=== PATIENT | male | born 1960 | race Caucasian/White ===

== ENCOUNTER 2020-03-27 15:32 | Emergency (ER) | payer OTHER, SELFPAY ==
--- NOTE | ~2020-03-27 | XR_ITS ---
EXAMINATION: XR abdomen/kub 1V INDICATION: Right flank pain TECHNIQUE: Supine views of the abdomen were obtained on 2 radiographs. COMPARISON: None FINDINGS: No urinary tract calculi are identified. Cholecystectomy clips are present in the right upp er quadrant. The bowel gas pattern is normal. There are changes of bilateral hip arthroplasty. IMPRESSION: 1. No radiographic correlate for the patient's symptoms. Reviewed, dictated and finalized at location A.
--- NOTE | ~2020-03-27 | CT_ITS ---
EXAMINATION: CT abdomen pelvis wo con DATE: 03/27/2020 16:17 INDICATION: Right flank pain TECHNIQUE: Computed tomography (CT) of the abdomen and pelvis was performed without intravenous contr ast. The dose-length product (DLP) was 1369.90 mGy-cm. Automated exposure control and iterative recon struction technique were employed. COMPARISON: 07/19/2018 FINDINGS: Minimal dependent atelectasis is present in the lung bases. The heart size is normal. The l iver is diffusely low in attenuation when compared with the spleen, consistent with hepatic steatosis . The gallbladder is surgically absent. The liver, spleen, pancreas, and adrenal glands are normal. T he kidneys are unremarkable. No stones are identified in the kidneys, ureters, or bladder. There is n o hydronephrosis or hydroureter. No pathologically enlarged abdominal or pelvic lymph nodes are ident ified. There is no free intraperitoneal gas or evidence of bowel obstruction. The appendix is normal. There is a fat-containing periumbilical hernia. There is chronic grade 1 anterolisthesis of L5 on S 1 with bilateral L5 pars defects. Changes of bilateral total hip arthroplasties are noted. IMPRESSION: 1. No CT correlate for the patient's symptoms. No urinary tract calculi, hydronephrosis, or hydrouret er. Reviewed, dictated and finalized at location [facility]. IMPRESSION: 1. No CT correlate for the patient's symptoms. No urinary tract calculi, hydron ephrosis, or hydroureter.
[2020-03-27 15:44] VITALS: BP 223/80; PULSE 94; RESP 18; TEMP 36.7; O2SAT 95
--- NOTE | 2020-03-27 15:47 | ED.ABDPAIN ---
HPI - Abdominal Pain General Chief Complaint: Abdominal Pain <Ray Talley PA-C - Last Filed: 03/27/20 17:24> Stated Complaint: flank <KISHA Perez Last Filed: 03/27/20 17:24> Time Seen by Provider: 03/27/20 15:37 <KISHA Perez Last Filed: 03/27/20 17:24> Source: patient <KISHA Perez Last Filed: 03/27/20 17:24> Mode of arrival: ambulatory <Ray Talley PA-C - Last Filed: 03/27/20 17:24> Limitations: no limitations <KISHA Perez Last Filed: 03/27/20 17:24> History of Present Illness HPI narrative: Patient is a 60-year-old male who presents to emergency department for evaluation of right flank pain that began over the last several days was more mild in nature and moreau increased in severity since onset patient denies similar occurrence in the past has not taken anything for his symptoms presents per private vehicle in no distresss <Ray Talley PA-C - Last Filed: 03/27/20 17:24> Related Data Home Medications: Home Medications Medication Instructions Recorded Confirmed alprazolam 1 mg tablet 1 mg PO TID PRN 12/15/19 03/09/20 paroxetine HCl 40 mg tablet 40 mg PO DAILY 12/15/19 03/09/20 <KISHA Perez Last Filed: 03/27/20 17:24> Allergies/Adverse Reactions: Allergies Allergy/AdvReac Type Severity Reaction Status Date / Time No Known Allergies Allergy Unknown Verified 03/27/20 15:47 <Ray Talley PA-C - Last Filed: 03/27/20 17:24> Review of Systems Review of Systems: All systems reviewed & are unremarkable except as noted in HPI and below <Ray Talley PA-C - Last Filed: 03/27/20 17:24> PMFSH Past Medical History Medical History: Medical History (Updated 03/27/20 @ 17:23 by Ray Talley PA-C) Anxiety Morbid (severe) obesity due to excess calories Type 2 diabetes mellitus without complication, without long-term current use of insulin <KISHA Perez Last Filed: 03/27/20 17:24> Surgical History Surgical History: Surgical History History of orthopedic surgery Hx of cholecystectomy <Ray Talley PA-C - Last Filed: 03/27/20 17:24> Family History Family History: Family History Father Patient's father is in good health Other Family history of malignant neoplasm <Ray Talley PA-C - Last Filed: 03/27/20 17:24> Social History Social History: Social History Smoking status: Current every day smoker Alcohol intake: never Gender identity (if verbalized by the patient): Female <Ray Talley PA-C - Last Filed: 03/27/20 17:24> Exam Narrative: Exam Narrative: GENERAL: Well-appearing, morbidly obese, and in no acute distress. HEAD: Normocephalic, atraumatic. EYES: PERRLA and EOMI. ENT: Nares clear, no rhinorrhea or epistaxis. Mucous membranes moist. CHEST: Clear to auscultation. No respiratory distress. No wheezes rales or rhonchi HEART: Regular rate and rhythm. No murmur heard. Normal peripheral pulses. ABDOMEN: Soft, nontender, distended EXTREMITIES: Normal range of motion. No edema. SKIN: Warm, dry, no rash. NEURO: No focal deficits. Alert and oriented x3. PSYCH: Normal mood and affect. <Ray Talley PA-C - Last Filed: 03/27/20 17:24> Course Vital Signs Vital signs: Vital Signs Temperature 36.7 C 03/27/20 15:44 Pulse Rate 94 03/27/20 15:44 Respiratory Rate 18 03/27/20 15:44 Blood Pressure 223/80 H 03/27/20 15:44 Pulse Oximetry 95 03/27/20 15:44 Temperature 36.7 C 03/27/20 15:44 Pulse Rate 84 03/27/20 17:36 Respiratory Rate 18 03/27/20 17:36 Blood Pressure 167/66 H 03/27/20 17:36 Pulse Oximetry 95 03/27/20 17:36 <Ray Talley PA-C - Last Filed: 03/27/20 17:24> Vital Signs
[2020-03-27] MEDS: FAMOTIDINE 20 MG/2 ML VIAL IV PUSH (16:30)
[2020-03-27] MEDS: SODIUM CHLORIDE 0.9% IV 1,000 ML 999 ML IV CONT ×2 (16:31)
[2020-03-27 16:39] LABS: Basophils Percent Auto 0.4 % (0.2-1.2); Eosinophils Absolute Auto 0.3 K/mm3 (0-0.3); Eosinophils Percent Auto 2.3 % (0-4.4); Hematocrit 49.3 % (42.0-52.0); Hemoglobin 16.3 g/dL (14.0-18.0); Immature Granulocyte Absolute 0.07 K/mm3 (0.00-0.031); Immature Granulocyte Percent A 0.6 % (0-0.5); Lymphocytes Absolute Auto 1.38 K/mm3 (0.9-3.2); Lymphocytes Percent Auto 12.6 % (18.3-44.2); Mean Corpuscular HGB Conc 33.1 g/dl (32-36); Mean Corpuscular Hemoglobin 30.2 pg (26-34); Mean Corpuscular Volume 91.5 fl (80-100); Mean Platelet Volume 9.7 fl (7.4-10.4); Monocytes Percent Auto 8.7 % (2.6-8.5); Neutrophils Absolute Auto 8.2 K/mm3 (1.3-6.7); Neutrophils Percent Auto 75.4 % (45.5-73.1); Platelet Count Result 210 k/mm3 (150-375); Red Blood Count 5.39 M/mm3 (4.6-6.20); Red Cell Distribution Width 13.5 % (11.5-14.5); White Blood Count 10.9 K/mm3 (4.5-10.0)
[2020-03-27 16:42] LABS: Add Urine Microscopic? YES; Appearance Urine Clear (Clear); Bilirubin Urine Negative (Negative); Blood Urine Negative (Negative); Color Urine Straw (Yellow); Glucose Urine UA 3+ mg/dL (Negative); Ketones Urine Negative (Negative); Leukocyte Esterase Ur Negative LEU/UL (Negative); Nitrate Urine Negative (Negative); Protein Urine Negative (Negative); Specific Grav Ur 1.028 (1.001-1.035); Urobilinogen Urine Negative mg/dL (<2.0)
[2020-03-27 16:57] LABS: Alanine Aminotransferase 30 U/L (4-50); Albumin Level 4.3 g/dL (3.5-5.1); Alkaline Phosphatase 94 U/L (38-126); Aspartate Amino Transferase 31 U/L (17-59); Bilirubin,Total 0.5 mg/dL (0.2-1.3); Blood Urea Nitrogen 10 mg/dL (9-20); Calcium 9.3 mg/dL (8.4-10.2); Carbon Dioxide 25 mmol/L (22-30); Chloride 104 mmol/L (98-107); Estimated Glomerular Filt Rate > 60; Glucose 248 mg/dL (75-110); Potassium 3.9 mmol/L (3.4-5.0); Sodium 138 mmol/L (137-145)
[2020-03-27] MEDS: KETOROLAC 30 MG/ML VIAL (*BKC) IV PUSH (17:30)
[2020-03-27 17:36] VITALS: BP 167/66; PULSE 84; RESP 18; O2SAT 95
== END 2020-03-27 17:38 | disposition home or self-care (01) ==
PROVIDERS: Emergency Medicine Emergency Medical Services; Emergency Provider Emergency Medicine; PCP Family Medicine
DX: R10.9 Unspecified abdominal pain (principal); F41.9 Anxiety disorder, unspecified; E66.01 Morbid (severe) obesity due to excess calories; E11.9 Type 2 diabetes mellitus without complications; F17.200 Nicotine dependence, unspecified, uncomplicated
CPT/HCPCS: 36415; 74018; 74176; 80053; 81001; 85025; 96361; 96365; 96375; 99284; J0131; J1885; J7030

== ENCOUNTER 2022-11-10 09:24 | Emergency (ER) | payer OTHER, SELFPAY ==
[2022-11-10] VITALS (25 sets, daily range): BP systolic 144–185; BP diastolic 60–92; PULSE 65–80; RESP 11–24; TEMP 36.5; O2SAT 95–97
--- NOTE | ~2022-11-10 | CT_ITS ---
EXAMINATION: CTA chest PE protocol DATE: 11/10/2022 11:39 INDICATION: Dyspnea for 5 days. History of asthma. Smoker. TECHNIQUE: Computed tomography angiography (CTA) of the chest was performed with 100 mL Omnipaque-350 intravenous contrast timed to evaluate the pulmonary arteries. Coronal maximum intensity projection 3D-reconstructions were created by the technologist. Automated exposure control and iterative reconst ruction technique were employed. Exam dose: 1123.06 mGy-cm total exam DLP. COMPARISON: November 10, 2022 portable AP chest October 30, 2017 CT chest FINDINGS: There is diagnostic contrast enhancement of the pulmonary arteries and no evidence of pulmo nary embolism. No pulmonary infiltrate or consolidation or pulmonary mass lesion or significant new or developing de nsity of the lungs since 10/30/2017 CT chest. There is old pulmonary granulomatous disease including calcified pulmonary granulomas, calcified righ t paratracheal, hilar and subcarinal lymph nodes. Normal heart size. Coronary artery calcifications. No evidence of thoracic aortic aneurysm or dissect ion. No hilar or mediastinal mass lesion or lymphadenopathy. No pericardial or pleural effusion. Degenerative changes of the cervical, thoracic and lumbar spine. IMPRESSION: No evidence of pulmonary embolism Reviewed, dictated and finalized at [facility]. Reviewed, dictated and finalized at location A. RNATIONAL ACCOUNT REPRESENTATIVE
--- NOTE | ~2022-11-10 | XR_ITS ---
XR chest 1V portable DATE: 11/10/2022 10:04 INDICATION: Cough TECHNIQUE: Portable upright AP chest on November 10, 2022 at 1001 hours COMPARISON: December 04, 2017 two-view chest FINDINGS: Normal heart size. No hilar or mediastinal enlargement. No pulmonary infiltrate or consolid ation, pleural effusion or pulmonary vascular congestion or pneumothorax. Calcified right midlung pul monary granuloma, stable since 12/04/2017. IMPRESSION: No active cardiopulmonary disease Reviewed, dictated and finalized at location A. CARE PROFESSIONAL
--- NOTE | 2022-11-10 09:53 | ECG_ITS ---
Measurements Intervals [place] Rate: 69 P: 38 WA: 226 QRS: -37 QRSD: 112 T: 36 QT: 396 QTc: 424 Interpretive Statements SINUS RHYTHM WITH FIRST DEGREE AV BLOCK MARKED LEFT AXIS DEVIATION [QRS AXIS < -30] MODERATE INTRAVENTRICULAR CONDUCTION DELAY [110+ ms QRS DURATION] NO PREVIOUS ECG AVAILABLE FOR COMPARISON Electronically Signed On 11-10-2022 19:41:45 DEPARTMENTAL BUYER by Torie Tanner M.D.
--- NOTE | 2022-11-10 09:57 | ED.GENADULT ---
HPI - General Adult General Chief complaint: Shortness of Breath/Dyspnea Stated complaint: Shortness of Breath 4 days Time Seen by Provider: 11/10/22 09:37 Source: RN notes reviewed History of Present Illness HPI narrative: Patient presents emergency department from home for shortness of breath. Patient states symptoms began approximately 5 days ago. States has been having shortness of breath associate with a cough states has been coughing up yellow sputum. States that shortness of breath has been getting worse over the past 2 days and states that last night he woke up feeling very short of breath approximately once every 2 hours states he does have a history of asthma and uses an inhaler and a nebulizer machine at home states he smokes approximately a pack and half cigarettes a day he denies any fevers or chills chest pain abdominal pain nausea vomiting or any other symptoms Related Data Home Medications Medication Instructions Recorded Confirmed paroxetine HCl 40 mg tablet (Paxil) 40 mg PO DAILY 12/15/19 11/01/22 alprazolam 1 mg tablet 1 mg PO QID PRN 08/10/21 11/01/22 Allergies Allergy/AdvReac Type Severity Reaction Status Date / Time No Known Allergies Allergy Unknown Verified 11/10/22 09:25 Review of Systems Review of Systems: Gen.: Denies fevers or chills ENT: Denies congestion Respiratory: See HPI CV: Denies chest pain or palpitations GI: Denies abdominal pain nausea, emesis or diarrhea Musculoskeletal: Denies back pain or muscle pain Neuro: Denies numbness, tingling, weakness or focal weakness Skin: Denies rash Except as documented, all other systems reviewed and negative [facility] Past Medical History Medical History (Updated 11/10/22 @ 14:42 by Titi Helm DO) Anxiety Morbid (severe) obesity due to excess calories Type 2 diabetes mellitus without complication, without long-term current use of insulin Surgical History Surgical History History of orthopedic surgery Hx of cholecystectomy Family History Family History Father Alzheimer's disease Cerebrovascular accident Mother Cancer Other Family history of malignant neoplasm Social History Social History Smoking packs per day: 1 Smoking cigarettes per day: 20.0 Years smoked: 20 Smoking pack-years: 20.00 Smoking status: Current every day smoker Tobacco type: cigarettes Second hand tobacco smoke exposure: No Alcohol intake: current Substance use: never Substance use type: does not use Lack of Transportation: YES Lack of Food: Never True Current Housing: I Have Housing Concerned About Future Housing: No Difficulty Paying Gas/Electric Bills: No Difficulty Paying for Meds: No Currently Unemployed: No Education: Associate Degree Difficulty w/ Childcare or Family Care: No Living arrangements: with family Occupation/Education: occupation Additional occupation/education comments: Rn Practitioner Gender identity (if verbalized by the patient): Male Sexual Orientation (if Verbalized by the Patient): Straight or Heterosexual Spiritual care concerns: No Agree to blood products: Yes Exam Narrative: APPEARANCE: No acute distress, nontoxic, resting in bed EYES: EOMI HEENT: Normocephalic, atraumatic, OMM RESPIRATORY: No respiratory distress mild wheezing in the upper lung [place] with decreased breath sounds in the bases no rhonchi CARDIOVASCULAR: Regular rate and rhythm without murmurs rubs or gallops. ABDOMINAL: Soft, nontender, nondistended, no rebound or guarding MUSCULOSKELETAl: Moves all extremities. No clubbing, cyanosis or edema. NEURO: Awake and alert. Following commands, speech normal, no focal deficits SKIN:: Warm, dry. No rashes lesions or abrasions PSYCHIATRIC: Normal affect/mood, Course Course Em
[2022-11-10] MEDS: ALBUTEROL SULFATE NEB 2.5 MG/3 ML INH INHALATION ×3 (10:14→13:47)
[2022-11-10] MEDS: IPRATROPIUM BR 0.02% INH SOLN 0.5 MG/2.5 ML VIAL INHALATION ×3 (10:14→13:47)
[2022-11-10] MEDS: methylPREDNISolone SOD SUCC 125 MG VIAL IV PUSH (10:28)
[2022-11-10 10:40] LABS: Basophils Percent Auto 0.3 % (0.2-1.2); Eosinophils Absolute Auto 0.3 K/mm3 (0-0.3); Eosinophils Percent Auto 3.9 % (0-4.4); Hematocrit 46.6 % (42.0-52.0); Hemoglobin 15.5 g/dL (14.0-18.0); Immature Granulocyte Absolute 0.01 K/mm3 (0.00-0.031); Immature Granulocyte Percent A 0.2 % (0-0.5); Lymphocytes Absolute Auto 1.19 K/mm3 (0.9-3.2); Lymphocytes Percent Auto 18.7 % (18.3-44.2); Mean Corpuscular HGB Conc 33.3 g/dl (32-36); Mean Corpuscular Hemoglobin 30.8 pg (26-34); Mean Corpuscular Volume 92.6 fl (80-100); Mean Platelet Volume 9.4 fl (7.4-10.4); Monocytes Absolute Auto 0.6 K/mm3 (0.1-0.6); Monocytes Percent Auto 9.9 % (2.6-8.5); Neutrophils Absolute Auto 4.3 K/mm3 (1.3-6.7); Platelet Count Result 146 k/mm3 (150-375); Red Blood Count 5.03 M/mm3 (4.6-6.20); White Blood Count 6.4 K/mm3 (4.5-10.0)
[2022-11-10 10:49] LABS: Alanine Aminotransferase 26 U/L (6-50); Albumin Level 4.3 g/dL (3.5-5.1); Alkaline Phosphatase 75 U/L (38-126); Anion Gap 6 mmol/L (8-16); Aspartate Amino Transferase 27 U/L (17-59); Bilirubin,Total 0.8 mg/dL (0.2-1.3); Blood Urea Nitrogen 10 mg/dL (9-20); Calcium 8.6 mg/dL (8.4-10.2); Carbon Dioxide 25 mmol/L (22-30); Chloride 103 mmol/L (98-107); Estimated CRCL calculation 149 ml/min; Estimated Glomerular Filt Rate > 60; Glucose 117 mg/dL (65-110); Potassium 3.8 mmol/L (3.4-5.0); Sodium 134 mmol/L (137-145)
[2022-11-10 11:00] LABS: NT Pro B Type Natriuretic Pept 156 pg/mL (19.9-100); Troponin I < 0.012 ng/mL (0.000-0.034)
[2022-11-10 11:13] LABS: INR 1.1; Prothrombin Time 14.1 Seconds (11.1-14.7)
[2022-11-10 11:14] LABS: Partial Thromboplastin Time 28.5 SECONDS (22.3-36.8)
[2022-11-10 11:16] LABS: Influenza A QL RT-PCR Negative (Negative); Influenza B QL RT-PCR Negative (Negative); RSV RNA, RT-PCR Negative (Negative); SARS-CoV-2 RNA PCR Negative
--- NOTE | 2022-11-10 13:00 | PC.NURSE ---
Patient ambulated with pulse oximeter on finger. Patient's O2 ranged from 93%-94% during ambulation. Patient having increased work of breathing following ambulation. EDP [place] notified.
== END 2022-11-10 15:25 | disposition home or self-care (01) ==
PROVIDERS: Emergency Provider Emergency Medicine; PCP Family Medicine
DX: J44.1 Chronic obstructive pulmonary disease with (acute) exacerbation (principal); Z20.822 Contact with and (suspected) exposure to COVID-19; E11.9 Type 2 diabetes mellitus without complications; F41.9 Anxiety disorder, unspecified; E66.01 Morbid (severe) obesity due to excess calories; Z68.41 Body mass index [BMI] 40.0-44.9, adult; F17.210 Nicotine dependence, cigarettes, uncomplicated; Z79.85 Long-term (current) use of injectable non-insulin antidiabetic drugs; Z79.84 Long term (current) use of oral hypoglycemic drugs; I44.0 Atrioventricular block, first degree; I45.9 Conduction disorder, unspecified
CPT/HCPCS: 36415; 71045; 71275; 80053; 83880; 84484; 85025; 85610; 85730; 87637; 93005; 94640; 96374; 99282; 99284; J2930; Q9967

== ENCOUNTER 2024-04-03 18:22 | Emergency (ER) | payer OTHER, SELFPAY ==
[2024-04-03] VITALS (11 sets, daily range): BP systolic 167–213; BP diastolic 68–75; PULSE 60–73; RESP 13–21; TEMP 36.6; O2SAT 17–99
--- NOTE | 2024-04-03 18:29 | ECG_ITS ---
Test Date: 2024-04-03 18:50:00 Measurements Intervals [place] Rate: 67 P: 3 NC: 192 QRS: -13 QRSD: 111 T: 5 QT: 406 QTc: 431 Interpretive Statements SINUS RHYTHM BORDERLINE AV CONDUCTION DELAY CANNOT R/O SEPTAL INFARCT, AGE INDETERMINATE BASELINE ARTIFACT- V3, V6 ABNORMAL ECG No previous ECG available for comparison Electronically Signed On 04-03-2024 20:46:35 CDT by Yuri Jimenez D.O.
[2024-04-03 18:55] LABS: Glucose Point of Care 204 mg/dl (65-105)
[2024-04-03 18:55] LABS: Glucose Point of Care 200 mg/dl (65-105)
--- NOTE | 2024-04-03 19:19 | ED.NEUROSD ---
HPI - Neuro Symptoms/Deficit General Chief Complaint: Neuro Symptoms/Deficit Stated Complaint: R sided facial numbness/droop for unknown time Time Seen by Provider: 04/03/24 19:03 Source: patient Limitations: no limitations History of Present Illness HPI Narrative: Patient is a 64-year-old male presents to the emergency department accompanied by for facial droop, slurred speech, facial numbness. Patient started noticing the symptoms at 11:00 a.m. approximately in the having gone away. Patient denies any history is the past. Patient denies recent injuries, recent illness, chest pain, difficulty breathing, cough, fever, difficulty swelling, vision changes, hearing changes, new or change medications, abdominal pain, vomiting, diarrhea, melena, hematochezia. Patient states that it feels like he has some decreased sensation along his right maxillary region, noticed that it was hard to drink out of a bottle and that the right side of his lower face was drooping and also felt like his speech was slightly slurred. Related Data Home Medications Medication Instructions Recorded Confirmed paroxetine HCl 40 mg tablet (Paxil) 40 mg PO DAILY 12/15/19 01/23/24 alprazolam 1 mg tablet 1 mg PO QID PRN 08/10/21 01/23/24 Allergies Allergy/AdvReac Type Severity Reaction Status Date / Time No Known Allergies Allergy Unknown Verified 01/23/24 14:31 Review of Systems Review of Systems: A 10 system review of systems was completed on the patient and is negative except for what is stated in the HPI. Nursing and ancillary documentation was reviewed. [facility] Past Medical History Medical History Anxiety BMI 37.0-37.9, adult BMI 39.0-39.9,adult BMI greater than 40 Morbid (severe) obesity due to excess calories Type 2 diabetes mellitus without complication, without long-term current use of insulin Uncontrolled diabetes mellitus Uncontrolled diabetes mellitus type 2 without complications Surgical History Surgical History History of orthopedic surgery Hx of cholecystectomy Family History Family History Father Alzheimer's disease Cerebrovascular accident Mother Cancer Other Family history of malignant neoplasm Social History Social History Smoking packs per day: 1 Smoking cigarettes per day: 20.0 Years smoked: 20 Smoking pack-years: 20.00 Smoking status: Current every day smoker Tobacco type: cigarettes Second hand tobacco smoke exposure: No Alcohol intake: current Substance use: never Substance use type: does not use Do You Feel Safe in your Home?: Yes Lack of Transportation: No Lack of Food: Never True Current Housing: I Have Housing Concerned About Future Housing: No Difficulty Paying Gas/Electric Bills: No Difficulty Paying for Meds: No Currently Unemployed: No Education: Associate Degree Difficulty w/ Childcare or Family Care: No Living arrangements: with family Occupation/Education: occupation Additional occupation/education comments: [employer] Gender identity (if verbalized by the patient): Male Sexual Orientation (if Verbalized by the Patient): Straight or Heterosexual Spiritual care concerns: No Agree to blood products: Yes Comments At time of signature, I have reviewed and agree with nursing past medical, surgical, social and family history unless otherwise noted. Please see the nursing chart for further information. There is no relevant family history pertinent to the presenting complaint. Exam Narrative: CONST: No acute distress. Well nourished. HENMT: Head is normocephalic and atraumatic. Moist mucous membranes. No posterior oropharynx erythema. EYES: No conjunctival icterus, injection, or pallor. P
== END 2024-04-03 20:00 | disposition left against medical advice (07) ==
LOC: ANHED 19:08
PROVIDERS: Emergency Provider Student in an Organized Health Care Education/Training Program; PCP Family Medicine
DX: R29.810 Facial weakness (principal); R47.81 Slurred speech; R20.0 Anesthesia of skin; E11.9 Type 2 diabetes mellitus without complications; F41.9 Anxiety disorder, unspecified; F17.210 Nicotine dependence, cigarettes, uncomplicated; E66.01 Morbid (severe) obesity due to excess calories; Z68.41 Body mass index [BMI] 40.0-44.9, adult; Z90.49 Acquired absence of other specified parts of digestive tract; R94.31 Abnormal electrocardiogram [ECG] [EKG]; Z79.85 Long-term (current) use of injectable non-insulin antidiabetic drugs; Z79.899 Other long term (current) drug therapy
CPT/HCPCS: 82948; 93005; 99284

== ENCOUNTER 2024-04-28 08:33 | Outpatient (CLI) | payer OTHER, SELFPAY ==
--- NOTE | ~2024-04-28 | MR_ITS ---
EXAMINATION: MR brain/brain stem wo/w con DATE: 04/28/2024 09:36 INDICATION: Right-sided facial weakness. TECHNIQUE: Magnetic resonance imaging (MRI) of the brain and brainstem was performed without and with 20 mL MultiHance intravenous contrast. COMPARISON: None. FINDINGS: There are scattered areas of nonspecific increased T2-weighted signal intensity in the cere bral white matter, which is within normal limits for the patient's age. There is no intracranial hemo rrhage, acute infarction, or abnormal intracranial mass lesion. The ventricles are normal in size. Th ere is mild mucosal thickening in the ethmoid sinuses. The orbits are normal. The mastoid air cells a re normal. IMPRESSION: 1. Normal aging brain. Reviewed, dictated and finalized at location A. IMPRESSION: 1. Normal aging brain.
== END 2024-04-28 08:34 ==
LOC: MICIMG 08:34
PROVIDERS: PCP Family Medicine; Visit Provider Nurse Practitioner Adult Health
DX: R29.810 Facial weakness (principal)
CPT/HCPCS: 70553; A9577